=== PATIENT | male | born 1965 | race Caucasian/White ===

== ENCOUNTER 2016-07-16 03:16 | Emergency (ER) | payer MEDICARE, MEDICAID ==
[~2016-07-16] VITALS: Ht 172.7 cm; Wt 77.0 kg
[~2016-07-16 03:16] MED LIST: ACET325T14 PO; Docusate Sodium PO; HYDR-3138 PO; LISI5TAB7 PO
[2016-07-16 03:55] LABS: HEMOGLOBIN 12.5 g/dL (13.7-18.0)
[2016-07-16 04:05] LABS: BLOOD UREA NITROGEN 19 mg/dL (7-18)
[2016-07-16] MEDS ORDERED: CEPHALEXIN 500 MG CAPSULE PO ONE (05:00)
[2016-07-16] MEDS ORDERED: CEPHALEXIN 500 MG CAPSULE ONE ×2 (05:04→05:06)
[2016-07-16 05:22] VITALS: BP 158/86
== END 2016-07-16 05:24 | disposition home or self-care (01) ==
LOC: ED 03:30
DX: L03.115 Cellulitis of right lower limb (principal)
CPT/HCPCS: 36415; 80048; 82040; 85025

== ENCOUNTER 2016-07-27 16:12 | Emergency (ER) | payer MEDICARE, MEDICAID ==
[~2016-07-27] VITALS: Ht 170.2 cm; Wt 75.0 kg
[2016-07-27 17:00] VITALS: BP 128/72
== END 2016-07-27 17:44 | disposition home or self-care (01) ==
LOC: ED 16:14
DX: S00.81XA Abrasion of other part of head, initial encounter (principal); S00.31XA Abrasion of nose, initial encounter; W19.XXXA Unspecified fall, initial encounter; Y93.89 Activity, other specified; Y99.8 Other external cause status; Y92.89 Other specified places as the place of occurrence of the external cause
CPT/HCPCS: 99283

== ENCOUNTER 2016-07-30 00:56 | Emergency (ER) | payer MEDICARE, MEDICAID ==
[~2016-07-30] VITALS: Ht 167.6 cm; Wt 75.0 kg
[2016-07-30 00:59] VITALS: BP 150/92
[2016-07-30] MEDS ORDERED: KETOROLAC 30 MG/1 ML ONE (01:27)
[2016-07-30] MEDS ORDERED: KETOROLAC 30 MG/1 ML IM ONE (01:30)
== END 2016-07-30 02:34 | disposition home or self-care (01) ==
LOC: ED 01:56
DX: G89.11 Acute pain due to trauma (principal); M25.562 Pain in left knee; M25.561 Pain in right knee; F12.10 Cannabis abuse, uncomplicated; F98.8 Other specified behavioral and emotional disorders with onset usually occurring in childhood and adolescence; W01.0XXA Fall on same level from slipping, tripping and stumbling without subsequent striking against object, initial encounter; Y93.01 Activity, walking, marching and hiking; Y99.8 Other external cause status; Y92.488 Other paved roadways as the place of occurrence of the external cause
CPT/HCPCS: 73564; 96372; 99284; J1885

== ENCOUNTER 2016-09-03 15:15 | Emergency (ER) | payer MEDICARE, MEDICAID ==
[~2016-09-03] VITALS: Ht 180.3 cm; Wt 115.0 kg
[2016-09-03 16:23] VITALS: BP 140/81
[2016-09-03] MEDS ORDERED: BACITRACIN ZINC OINT 500U/GM, 0.9 GM ONE (16:31)
== END 2016-09-03 17:55 | disposition home or self-care (01) ==
LOC: ED 16:04
DX: S00.91XA Abrasion of unspecified part of head, initial encounter (principal); S60.511A Abrasion of right hand, initial encounter; F12.10 Cannabis abuse, uncomplicated; W01.0XXA Fall on same level from slipping, tripping and stumbling without subsequent striking against object, initial encounter; Y93.89 Activity, other specified; Y92.89 Other specified places as the place of occurrence of the external cause; Y99.8 Other external cause status
CPT/HCPCS: 99283

== ENCOUNTER 2016-09-16 15:37 | Emergency (ER) | payer MEDICARE, MEDICAID ==
[~2016-09-16] VITALS: Ht 172.7 cm; Wt 78.8 kg
[2016-09-16 15:44] VITALS: BP 156/95
[2016-09-16] MEDS ORDERED: KETOROLAC 30 MG/1 ML ONE (16:30)
[2016-09-16] MEDS ORDERED: KETOROLAC 30 MG/1 ML IM ONE (16:30)
== END 2016-09-16 17:10 | disposition home or self-care (01) ==
LOC: ED 16:00
DX: M79.671 Pain in right foot (principal); G89.29 Other chronic pain; F12.10 Cannabis abuse, uncomplicated
CPT/HCPCS: 96372; 99283; J1885

== ENCOUNTER 2016-10-12 16:53 | Emergency (ER) | payer MEDICARE, MEDICAID ==
[~2016-10-12] VITALS: Ht 172.7 cm; Wt 76.7 kg
[2016-10-12 16:55] VITALS: BP 133/78
[2016-10-12] MEDS ORDERED: ACETAMINOPHEN 325 MG TABLET ONE (17:15)
[2016-10-12] MEDS ORDERED: ACETAMINOPHEN 325 MG TABLET PO ONE (17:30)
[2016-10-12] MEDS ORDERED: BACITRACIN ZINC OINT 500U/GM, 0.9 GM ONE (17:36)
== END 2016-10-12 19:08 | disposition home or self-care (01) ==
LOC: ED 17:09
DX: S60.221A Contusion of right hand, initial encounter (principal); S60.041A Contusion of right ring finger without damage to nail, initial encounter; F19.10 Other psychoactive substance abuse, uncomplicated; S60.051A Contusion of right little finger without damage to nail, initial encounter; W01.0XXA Fall on same level from slipping, tripping and stumbling without subsequent striking against object, initial encounter; Y93.89 Activity, other specified; Y99.8 Other external cause status; Y92.488 Other paved roadways as the place of occurrence of the external cause
CPT/HCPCS: 29125

== ENCOUNTER 2016-10-13 07:37 | Emergency (ER) | payer MEDICARE, MEDICAID ==
[~2016-10-13] VITALS: Ht 172.7 cm; Wt 75.0 kg
[2016-10-13 08:04] VITALS: BP 134/58
== END 2016-10-13 08:22 | disposition home or self-care (01) ==
LOC: ED 08:16
DX: M79.601 Pain in right arm (principal); M79.641 Pain in right hand; F19.10 Other psychoactive substance abuse, uncomplicated
CPT/HCPCS: 99281

== ENCOUNTER 2016-10-26 10:54 | Emergency (ER) | payer MEDICARE, MEDICAID ==
[~2016-10-26] VITALS: Ht 172.7 cm; Wt 73.5 kg
[2016-10-26 10:58] VITALS: BP 119/95
== END 2016-10-26 13:43 | disposition home or self-care (01) ==
LOC: ED 11:37
DX: S63.501A Unspecified sprain of right wrist, initial encounter (principal); Z87.820 Personal history of traumatic brain injury; E87.1 Hypo-osmolality and hyponatremia; X58.XXXA Exposure to other specified factors, initial encounter; Y93.89 Activity, other specified; Y92.89 Other specified places as the place of occurrence of the external cause; Y99.9 Unspecified external cause status
CPT/HCPCS: 99284

== ENCOUNTER 2016-12-16 11:59 | Emergency (ER) | payer MEDICARE, MEDICAID ==
[~2016-12-16] VITALS: Ht 172.7 cm; Wt 75.0 kg
[~2016-12-16 11:59] MED LIST changes: -HYDR-3138 PO; +HYDR-3237 PO
[2016-12-16 14:01] VITALS: BP 116/67
== END 2016-12-16 14:04 | disposition home or self-care (01) ==
LOC: ED 12:49
DX: S00.31XA Abrasion of nose, initial encounter (principal); S00.81XA Abrasion of other part of head, initial encounter; S00.511A Abrasion of lip, initial encounter; R42 Dizziness and giddiness; F17.200 Nicotine dependence, unspecified, uncomplicated; W01.0XXA Fall on same level from slipping, tripping and stumbling without subsequent striking against object, initial encounter; Y93.89 Activity, other specified; Y92.89 Other specified places as the place of occurrence of the external cause; Y99.9 Unspecified external cause status
CPT/HCPCS: 70450; 93005; 99284